=== PATIENT | female | born 1965 | race Caucasian/White ===

== ENCOUNTER → 2016-11-30 | Outpatient (CLI) | payer OTHER ==
--- NOTE | ~2016-11-30 | MY11 ---
[facility] A Service of [facility] / [facility] RADIOLOGY TEXT RESULTS PATIENT: VON LEMON LOCATION: [facility] : 63 UNIT #: [id number] AGE: [address]: Kadeem Maciel MD SEX: F ORDER DR: [id number] [facility] [address] [place], [place] [address] [id number] O MR#: [id number] Acc #: [id number] NAME: VON LEMON. : 1965 SEX: F STUDY DATE/TIME: 11/30/2016 14:58 UNIT: [facility] ROOM: STUDY DESCRIPTION: MY Mammogram Screening Dig [facility]erv[facility] Attending Physician: Kadeem Maciel M.D. Ordering Physician: Kadeem Maciel M.D. Primary Care Physician: Kadeem Maciel M.D. MEDICAL IMAGING REPORT This report is preliminary unless electronic signature is present EXAM Digital screening mammogram 11/30/2016 HISTORY 51-year-old woman. No risk elevation. Annual screen. COMPARISON Mammograms now available from [facility] date 03/22/2014. FINDINGS Digital imaging of each breast was completed utilizing screening protocol. Review includes FDA-approved CAD device. Breast parenchyma is moderately dense with fibroglandular pattern present bilaterally. Low-lying right axillary nodes are noted. Intramammary lymph node upper hemisphere left breast. I see no suspicious mass. There are no interval-occurring microcalcifications and no suspicious architectural deformity. IMPRESSION Negative mammogram. Annual screening recommended. Patient's over the age of 40 are entered into a reminder system with target due date for the next mammogram. BIRADS: 1 Negative Dictated by... Humberto Rose M.D. THIS IS AN ELECTRONICALLY VERIFIED REPORT Humberto Rose M.D. at 12/06/2016 2:29 PM CHERY/polly [facility] A Service [facility] RADIOLOGY TEXT RESULTS PATIENT: VON LEMON [id number] : [birth year] UNIT #: [id number] AGE: [address]: aKdeem Maciel MD SEX: F ORDER DR: TD: 12/06/2016 13:58 JOB #: [id number] MEDICAL IMAGING REPORT COPY
== END | disposition home or self-care (01) ==
LOC: CWCC 14:29
DX: Z12.31 Encounter for screening mammogram for malignant neoplasm of breast (principal)
CPT/HCPCS: G0202

== ENCOUNTER → 2017-04-25 | Outpatient (CLI) | payer SELFPAY | END | disposition home or self-care (01) | LOC: CBAR 11:16 | DX: Z01.818 Encounter for other preprocedural examination (principal); E66.01 Morbid (severe) obesity due to excess calories | CPT/HCPCS: G0463 ==

== ENCOUNTER → 2017-05-31 | Outpatient (CLI) | payer SELFPAY | END | disposition home or self-care (01) | LOC: CBAR 09:18 | DX: Z01.818 Encounter for other preprocedural examination (principal); E66.01 Morbid (severe) obesity due to excess calories | CPT/HCPCS: G0463 ==